=== PATIENT | male | born 1960 | race Caucasian/White ===

== ENCOUNTER 2018-12-11 14:41 | Outpatient (CLI) | payer OTHER ==
--- NOTE | 2018-12-11 15:11 | RAD ---
XR Chest Pa Lat STANDARD History: [Occupational exposure to asbestos] Comparison: None. Findings: Lungs are clear. No pneumothorax. No effusion. Cardiac silhouette mildly enlarged. No acute osseous abnormality. No calcified pleural plaques. Impression: No acute intrathoracic abnormality.
== END 2018-12-11 14:42 | disposition home or self-care (01) ==
LOC: BICRAD 14:41
PROVIDERS: ATTEND Legal Medicine
DX: Z57.8 Occupational exposure to other risk factors (principal)
CPT/HCPCS: 71046